=== PATIENT | female | born 1945 | race Caucasian/White ===

== ENCOUNTER → 2016-05-28 | Outpatient (CLI) | payer BC ==
[~2016-05-28] MED LIST: ATOR10TA88 PO; CALC500C70 PO; CHOL100010; CYCL0.05 OP; LEVO1TAB PO; METO50TA16 PO; NXM/40 PO; TELM80TA PO
--- NOTE | 2016-05-28 14:17 | MAMMOGRAPHY REPORT ---
BILATERAL DIGITAL SCREENING MAMMOGRAM WITH CAD: 05/28/2016 CLINICAL HISTORY: Routine screening. Patient has no complaints. TECHNIQUE: Current study was also evaluated with a Computer Aided Detection (CAD) system. Bilatera l CC and MLO views were obtained. COMPARISON: Comparison is made to exams dated: 04/17/2015 mammogram, 04/14/2013 mammogram, 04/16/2014 mammogram, 04/13/2012 mammogram, 04/10/2011 mammogram, and 04/09/2010 mammogram - [facility]. BREAST COMPOSITION: The tissue of both breasts is almost entirely fatty. FINDINGS: No suspicious masses, calcifications, or areas of architectural distortion are noted in e ither breast. There has been no significant interval change compared to prior exams. Scattered bila teral benign-appearing rodlike calcifications are again noted. IMPRESSION: ACR BI-RADS CATEGORY 2: BENIGN There is no mammographic evidence of malignancy. A 1 year screening mammogram is recommended. The p atient will receive written notification of the results. Approximately 10% of breast cancers are not detected with mammography. A negative mammographic repor t should not delay biopsy if a clinically suggestive mass is present. Elise Tolliver M.D. ah/:05/28/2016 10:40:33 Broadband Technician: Mary CHOWDARY(R)(M), [facility] letter sent: Normal 1/2 BI-RADS Code: ACR BI-RADS Category 2: Benign
== END | disposition home or self-care (01) ==
LOC: C.MAMM 09:21
PROVIDERS: ATTEND Obstetrics & Gynecology
DX: Z12.31 Encounter for screening mammogram for malignant neoplasm of breast (principal)

== ENCOUNTER → 2016-10-08 | Outpatient (CLI) | payer BC ==
[~2016-10-08] MED LIST changes: +ATOR10TA82 PO; -ATOR10TA88 PO
[2016-10-08 17:11] LABS: BLOOD UREA NITROGEN 14 mg/dl (7-18); CREATININE 0.78 mg/dl (0.60-1.20)
== END | disposition home or self-care (01) ==
LOC: C.LABBC 13:00
PROVIDERS: ATTEND Physician Assistant
DX: Z00.00 Encounter for general adult medical examination without abnormal findings (principal); H90.8 Mixed conductive and sensorineural hearing loss, unspecified

== ENCOUNTER → 2016-10-13 | Outpatient (CLI) | payer BC ==
[~2016-10-13] MED LIST changes: +GADAVIST IV PRN
--- NOTE | 2016-10-13 10:50 | DIAGNOSTIC IMAGING REPORT ---
MRA OF THE INTRACRANIAL CIRCULATION WITHOUT CONTRAST CLINICAL HISTORY: Pulsatile tinnitus of left ear. COMPARISON STUDY: MRI of the brain March 07, 2008. TECHNIQUE: Utilizing a 1.5 Idalia magnet and 3-D temx-um-iowcji technique, unenhanced MRA of the intracranial circulation was obtained. FINDINGS: The bilateral M1, M2, A1 and A2 segments are patent. There is an anterior communicating artery and bilateral posterior communicating arteries. No intracranial aneurysm or abrupt vessel cut off is identified. There is mild narrowing of the bilateral cavernous carotids which is difficult to assess due to mild motion artifact at this level. Posterior circulation is also intact. IMPRESSION: 1. No intracranial aneurysm or abrupt vessel cut off. 2. Unremarkable MRA of the intracranial circulation for age. Electronically signed by: Marlon Bean M.D. 10/13/2016 10:49 AM Dictated Date/Time: 10/13/2016 10:45 AM
--- NOTE | 2016-10-13 11:24 | DIAGNOSTIC IMAGING REPORT ---
MRI OF THE BRAIN AND IACS WITHOUT AND WITH IV CONTRAST CLINICAL HISTORY: H90.8 Mixed conductive and sensorineural hearing lossR53.83 fatigue left-sided tinnitus COMPARISON STUDY: 03/07/2008 TECHNIQUE: MRI of the brain was performed from the vertex to the skull base utilizing various T1 and T2 weighted sequences. Following the IV administration of 10 mL of Gadavist contrast, additional enhanced images were obtained. FINDINGS: Sagittal T1, axial diffusion, proton density and T2 weighted axial, coronal FLAIR, and pre and post axial T1-weighted images were acquired. These were supplemented with post gadolinium coronal T1 weighted images. No intra or extra-axial mass lesions are visualized. Axial diffusion-weighted images reveal no evidence of acute or subacute infarction. There is no evidence of ventricular dilatation. Proton density T2-weighted and FLAIR images reveal scattered foci of increased T2 signal within the white matter, likely on a small vessel basis. The findings remain stable. There are no abnormal flow voids. There is no evidence of pathologic enhancement. No cerebellopontine angle masses are visualized. There is no evidence of pathologic intracanalicular enhancement. There are foci of increased T2 signal within the right mastoid, likely inflammatory. IMPRESSION: 1. No significant change from the prior February 2008 study (other than progressive inflammatory changes within the right mastoid) 2. No evidence of intracranial mass. No CP angle abnormalities identified 3. Foci of increased T2 signal within the right mastoid likely inflammatory Electronically signed by: Darrius Austin M.D. 10/13/2016 11:23 AM Dictated Date/Time: 10/13/2016 11:17 AM
== END | disposition home or self-care (01) ==
LOC: C.MRI 09:58
PROVIDERS: ATTEND Physician Assistant
DX: H93.A2 Pulsatile tinnitus, left ear (principal); H90.8 Mixed conductive and sensorineural hearing loss, unspecified; R53.83 Other fatigue

== ENCOUNTER → 2016-12-22 | Outpatient (CLI) | payer BC ==
[~2016-12-22] MED LIST changes: -ATOR10TA82 PO; +ATOR10TA88 PO; -GADAVIST IV PRN
[2016-12-22 13:47] LABS: BLOOD UREA NITROGEN 10 mg/dl (7-18); BUN/CREATININE RATIO 13.6 (10-20); CREATININE 0.76 mg/dl (0.60-1.20); GLUCOSE 123 mg/dl (70-99); SODIUM 138 mmol/L (136-145)
[2016-12-22 13:48] LABS: CALCIUM 8.9 mg/dl (8.5-10.1); CARBON DIOXIDE 26 mmol/L (21-32); CHLORIDE 104 mmol/L (98-107); POTASSIUM 3.6 mmol/L (3.5-5.1)
== END | disposition home or self-care (01) ==
LOC: C.LABBC 10:54
PROVIDERS: ATTEND Internal Medicine Geriatric Medicine
DX: E03.9 Hypothyroidism, unspecified (principal); I10 Essential (primary) hypertension

== ENCOUNTER → 2017-05-31 | Outpatient (CLI) | payer BC ==
[~2017-05-31] MED LIST changes: +ATOR10TA82 PO; -ATOR10TA88 PO
--- NOTE | 2017-06-01 14:39 | MAMMOGRAPHY REPORT ---
BILATERAL DIGITAL SCREENING MAMMOGRAM TOMOSYNTHESIS WITH CAD: 05/31/2017 CLINICAL HISTORY: Routine screening. Patient has no complaints. TECHNIQUE: Breast tomosynthesis in addition to standard 2D mammography was performed. Current study was also evaluated with a Computer Aided Detection (CAD) system. COMPARISON: Comparison is made to exams dated: 05/28/2016 mammogram, 04/17/2015 mammogram, 04/16/2014 m ammogram, 04/14/2013 mammogram, 04/13/2012 mammogram, and 04/10/2011 mammogram - [facility] enter. BREAST COMPOSITION: The tissue of both breasts is almost entirely fatty. FINDINGS: There are diffuse bilateral benign rodlike calcifications in the breasts. No suspicious ma ss, architectural distortion or cluster of suspicious microcalcifications is seen. IMPRESSION: ACR BI-RADS CATEGORY 1: NEGATIVE There is no mammographic evidence of malignancy. A 1 year screening mammogram is recommended. The pa tient will receive written notification of the results. Approximately 10% of breast cancers are not detected with mammography. A negative mammographic report should not delay biopsy if a clinically suggestive mass is present. Eloina Galvan M.D. ay/:05/31/2017 17:13:19 Lawn Mower Sharpener: Elsa CHOWDARY(Jaron)(Roderick), [facility] letter sent: Normal 1/2 BI-RADS Code: ACR BI-RADS Category 1: Negative
== END | disposition home or self-care (01) ==
LOC: C.MAMM 10:02
PROVIDERS: ATTEND Internal Medicine Geriatric Medicine
DX: Z12.31 Encounter for screening mammogram for malignant neoplasm of breast (principal)

== ENCOUNTER → 2017-07-01 | Outpatient (CLI) | payer BC ==
--- NOTE | 2017-07-01 12:16 | DIAGNOSTIC IMAGING REPORT ---
CERVICAL SPINE 2 OR 3 VIEWS HISTORY: Pain. Arthritis. M19.90 Osteoarthritis COMPARISON: None. FINDINGS: The cervical spine is visualized from C1 through the superior endplate of T1. There is no fracture. No subluxation. Moderate degenerative disc change C5-C6. All remaining disc spaces are unremarkable. Prevertebral soft tissues and the atlantodens interval are intact. Osteopenia. IMPRESSION: Moderate degenerative disc change C5-C6. Mild osteopenia. No acute process. The above report was generated using voice recognition software. It may contain grammatical, syntax or spelling errors. Electronically signed by: Ez Lopez M.D. 07/01/2017 12:14 PM Dictated Date/Time: 07/01/2017 12:14 PM
== END | disposition home or self-care (01) ==
LOC: C.RADBC 11:49
PROVIDERS: ATTEND Internal Medicine Geriatric Medicine
DX: M19.90 Unspecified osteoarthritis, unspecified site (principal); M50.322 Other cervical disc degeneration at C5-C6 level

== ENCOUNTER 2017-07-09 23:05 | Emergency (ER) | payer BC ==
[~2017-07-09] VITALS: Ht 154.9 cm; Wt 101.9 kg
[2017-07-09 23:31] VITALS: BP 150/82; PULSE 64; TEMP 36.8; O2SAT 96; Ht 154.9 cm; Wt 101.9 kg
[2017-07-09] MEDS ORDERED: OXYCODONE HCL IR 5 MG TAB (IMMEDIATE RELEASE) PO STA (23:40)
--- NOTE | 2017-07-09 23:56 | EMERGENCY ROOM VISIT NOTE ---
History Report prepared by [place]: David Johansen Under the Supervision of: Dr. Genaro Travis M.D. First contact with patient: 23:33 Chief Complaint: HAND PAIN/INJURY Stated Complaint: HURT HAND History of Present Illness The patient is a 71 year old female who presents to the Emergency Room with complaints of constant left hand pain that began a couple of hours ago. She rates her discomfort as a 10/10 in severity. The patient states that she was sitting when her cat sneezed in her face. She reports she was startled by the sneeze, which caused her to hit her hand off of something. The patient states that she became nauseous when she hit her hand. She reports her nausea resolved , but states she has been experiencing constant left hand pain. She states the pain is located primarily in her left thumb into her wrist. The patient states that she took Tylenol for her symptoms an hour ago without any relief. She reports a history of a bone spurt in her left hand, arthritis, and tendonitis, which she does physical therapy for. The patient states that she has a tremor at baseline, which she takes Primidone for. Source of History: patient Onset: a couple of hours ago Position: hand (left) Symptom Intensity: 10/10 Timing: constant Modifying Factors (Relieving): tylenol Associated Symptoms: + nausea (resolved) Review of Systems See HPI for pertinent positives & negatives. A total of 6 systems reviewed and were otherwise negative. Past Medical & Surgical Medical Problems: (1) Carotid artery occlusion (2) Gastric ulcer (3) HTN (hypertension) (4) Hyperlipemia Family History FH: heart disease Social History Smoking Status: Never Smoker Alcohol Use: occasionally Marital Status: Housing Status: lives with significant other Occupation Status: retired Current/Historical Medications Scheduled Atorvastatin (Lipitor), 10 MG PO QPM Calcium/Vitamin D (Os-Jayy 500 Plus D), 1 TAB PO DAILY Cholecalciferol (Vitamin D), 2,000 INTER.UNIT .ROUTE DAILY Cyclosporine Oph 0.05% (Restasis Oph 0.05%), 1 DROP OP BID Esomeprazole Magnesium (Nexium), 40 MG PO DAILY Levothyroxine Sodium (Synthroid), 0.137 MG PO DAILY Metoprolol Tartrate (Lopressor) (Lopressor), 50 MG PO BID Telmisartan (Micardis), 80 MG PO QPM Allergies Coded Allergies: Alendronate (Verified Allergy, Unknown, HIVES, 07/14/13) Aspirin (Verified Allergy, Unknown, STOMACH ULCER, 07/14/13) Lisinopril (Verified Allergy, Unknown, HIVES, 07/14/13) Olmesartan (Verified Allergy, Unknown, HIVES, 07/14/13) Physical Exam Vital Signs Date Time Temp Pulse Resp B/P (MAP) Pulse Ox O2 Delivery O2 Flow Rate FiO2 07/09/17 23:31 36.8 64 16 150/82 96 Room Air Physical Exam GENERAL: Patient is uncomfortable appearing and in mild distress. EXTREMITIES: Normal motion all extremities, no cyanosis, no edema. Bruising of nail bed of left thumb. Tenderness to palpation of the medial aspect of the entire thumb. Pain with range of motion of all joints and thumb. NEUROLOGIC: Alert and oriented, no acute motor or sensory deficits, no focal weakness, cranial nerves grossly intact. Medical Decision & Procedures ER Provider Diagnostic Interpretation: X ray results are stated below per my interpretation. 3 VIEW LEFT THUMB: Moderate degenerative changes. No fracture. No dislocation. Medications Administered Medications (Trade) Dose Ordered Sig/Fransisca Route Start Time Stop Time Status Last Admin Dose Admin Oxycodone HCl (Roxicodone Immediate Rel Tab) 5 mg NOW STAT PO 07/09/17 23:40 07/09/17 23:41 DC 07/09/17 23:40 5 MG Oxycodone HCl (Roxicodone Immediate Rel 5MG Home Pack) 1 homepack UD ONCE PO 07/10/17 00:45 07/10/17 00:46 DC 07/10/17 00:45 1 HOMEPACK ED Course 2337: The patient was evaluated in room B07. A complete history and physical exam was performed. 0021: I reevaluated the patient and she is feeling better and would like to go home. I discussed a finger split and going home with Oxy IR and the restrictions there of. Medical Decision The differential diagnosis includes: fracture, dislocation, and contusion. 71 yr old female with contusion to left thumb. No obvious fracture on imaging but with swelling pain will place in splint for primarily at nights and stressed trying to keep it mobile so that it doesn't stiffen further beyond already basely issues. Medication Reconcilliation Current Medication List: was personally reviewed by me Blood Pressure Screening Patient's blood pressure: Elevated blood pressure Blood pressure disposition: Elevated BP felt to be situational Impression Primary Impression: Contusion of left thumb Scribe Attestation The scribe's documentation has been prepared under my direction and personally reviewed by me in its entirety. I confirm that the note above accurately reflects all work, treatment, procedures, and medical decision making performed by me. Departure Information Dispostion Home / Self-Care Referrals Son Umanzor M.D. (PCP) Patient Instructions ED Contusion Finger, My [facility] Additional Instructions You have received a narcotic pain medication. These medications may cause drowsiness and should not be used with other sedative medications. Do not drive , drink alcohol, perform dangerous activities, nor make important decisions after taking these medications. penitentiary use or inappropriate use may lead to addiction.
[2017-07-10] MEDS ORDERED: OXYCODONE IR HOME PACK PO ONE (00:45)
--- NOTE | 2017-07-10 05:42 | DIAGNOSTIC IMAGING REPORT ---
L FINGER(S) MIN 2 VIEWS ROUTINE CLINICAL HISTORY: 71 years-old Female presenting with left thumb contusion. TECHNIQUE: Frontal, oblique, and lateral views of the left first finger were obtained. COMPARISON: Correlation made to plain radiographs of the left wrist from 2011. FINDINGS: Mild degenerative changes suggested at the trapezium-first metacarpal articulation as well as the interphalangeal joint of the first finger. No acute fracture or malalignment. No focal radiographic soft tissue abnormality. Osteopenia may be present. IMPRESSION: No acute osseous injury. Electronically signed by: Bradley Cerna M.D. 07/10/2017 5:40 AM Dictated Date/Time: 07/10/2017 5:39 AM
== END 2017-07-10 01:05 | disposition home or self-care (01) ==
LOC: C.EDB 23:06
DX: S60.012A Contusion of left thumb without damage to nail, initial encounter (principal); W22.8XXA Striking against or struck by other objects, initial encounter; I10 Essential (primary) hypertension; E78.5 Hyperlipidemia, unspecified; Z88.6 Allergy status to analgesic agent; Z88.8 Allergy status to other drugs, medicaments and biological substances; Z82.49 Family history of ischemic heart disease and other diseases of the circulatory system

== ENCOUNTER 2020-01-05 10:15 | Observation (INO) ==
--- NOTE | 2019-12-11 15:13 | PAT Medication Instructions ---
Medication Instructions Date of Service December 11, 2019 Home Medications Medication Instructions Recorded fesoterodine 4 mg tablet,extended 4 mg PO QAM #90 tab 03/15/19 release 24 hr CPAP Machine #1 ea 04/26/19 primidone 50 mg tablet 100 mg PO TID 30 Days #180 tab 07/20/19 levothyroxine 150 mcg tablet 150 mcg PO QAM #90 tab 08/21/19 celecoxib 100 mg capsule 100 mg PO BID #180 cap 09/18/19 metoprolol tartrate 50 mg tablet 50 mg PO BIDM #180 tab 10/12/19 cholecalciferol (vitamin D3) 50 mcg (2,000 unit) capsule 2,000 units PO QPM cyclosporine 0.05 % eye drops in a dropperette 1 drops OPB Q12H omega-3 fatty acids 1,000 mg capsule 3,000 mg PO QAM atorvastatin 10 mg PO QAM fesoterodine 4 mg tablet,extended release 24 hr 4 mg PO QAM Calcium 600 + D(3) 1 cap PO QPM primidone 50 mg tablet 100 mg PO TID levothyroxine 150 mcg tablet 150 mcg PO QAM # celecoxib 100 mg capsule 100 mg PO BID metoprolol tartrate 50 mg tablet 50 mg PO BIDM acetaminophen [Tylenol Extra Strength] 1,000 mg PO DAILY PRN duloxetine 30 mg PO HS telmisartan 80 mg PO HS ASK your surgeon for instructions celecoxib 100 mg capsule 100 mg PO BID STOP taking 2 weeks before surgery omega-3 fatty acids 1,000 mg capsule 3,000 mg PO QAM DO NOT take the morning of surgery fesoterodine 4 mg tablet,extended release 24 hr 4 mg PO QAM Take morning of surgery With a small sip of water, OTHERWISE NOTHING TO EAT OR DRINK AFTER MIDNIGHT: acetaminophen [Tylenol Extra Strength] 1,000 mg PO DAILY PRN (okay to take up to 4 hours prior to surgery if needed) metoprolol tartrate 50 mg tablet 50 mg PO BIDM levothyroxine 150 mcg tablet 150 mcg PO QAM primidone 50 mg tablet 100 mg PO TID atorvastatin 10 mg PO QAM cyclosporine 0.05 % eye drops in a dropperette 1 drops OPB Q12H Take evening before surgery cholecalciferol (vitamin D3) 50 mcg (2,000 unit) capsule 2,000 units PO QPM cyclosporine 0.05 % eye drops in a dropperette 1 drops OPB Q12H Calcium 600 + D(3) 1 cap PO QPM primidone 50 mg tablet 100 mg PO TID metoprolol tartrate 50 mg tablet 50 mg PO BIDM acetaminophen [Tylenol Extra Strength] 1,000 mg PO DAILY PRN (if needed) duloxetine 30 mg PO HS telmisartan 80 mg PO HS Other Notes If you have any questions please call us at [phone] or [phone] or [phone] or [phone]
--- NOTE | 2019-12-13 11:49 | Anesthesiology Consultation ---
Date of Service December 13, 2019 Assessment & Plan (1) Encounter for pre-operative examination: Chart Review Chart Review: Pending: Refer to Additional Notes / Consult section (carotid studies/vascular note ([place]) and preop Covid testing) and Patient seen in Pre Admission Testing Will attempt to get most recent carotid studies and vascular note from [place] Per PAT appt 12/13/19, patient denies any recent travel. Educated patient to follow up with surgeon's office regarding Covid testing. Educated on importance of self quarantining, social distancing and wearing mask in public both for the patient and household contacts. Teaching & Discussion Pre-Anesthesia Teaching/Discussion Notes: Instructed NPO after midnight before surgery,except medications with 15 cc of water. Medication instructions provided according to the PAT guidelines. History Surgery Operation Date: 01/05/20 07:00 Proposed Procedures p Left Anterior Total Hip Arthroplasty - Mar[facility] De Souza, Height/Weight Height: 5 ft 1.5 in Weight: 100.1 kg Allergies Allergy/AdvReac Type Severity Reaction Status Date / Time alendronate sodium Allergy Unknown HIVES Verified 12/07/19 08:42 lisinopril Allergy Unknown HIVES Verified 12/07/19 08:42 olmesartan Allergy Unknown HIVES Verified 12/07/19 08:42 aspirin AdvReac Unknown HX STOMACH Verified 12/07/19 08:42 ULCER-TO AVOID Medications Home Medications Medication Instructions Recorded Confirmed Last Taken cholecalciferol (vitamin D3) 50 2,000 units PO QPM 11/22/18 12/07/19 04/10/19 20:00 mcg (2,000 unit) capsule cyclosporine 0.05 % eye drops in a 1 drops OPB Q12H 11/22/18 12/07/19 04/10/19 20:00 dropperette omega-3 fatty acids 1,000 mg 3,000 mg PO QAM cap 11/22/18 12/07/19 04/10/19 20:00 capsule atorvastatin 10 mg PO QAM 03/14/19 12/07/19 04/11/19 05:00 fesoterodine 4 mg tablet,extended 4 mg PO QAM #90 tab 03/15/19 12/07/19 04/11/19 05:00 release 24 hr Calcium 600 + D(3) 1 cap PO QPM 03/29/19 12/07/1919 20:00 CPAP Machine #1 ea 04/26/19 11/02/19 Unknown primidone 50 mg tablet 100 mg PO TID 30 Days #180 tab 07/20/19 12/07/19 Unknown levothyroxine 150 mcg tablet 150 mcg PO QAM #90 tab 08/21/19 12/07/19 Unknown celecoxib 100 mg capsule 100 mg PO BID #180 cap 09/18/19 12/07/19 Unknown metoprolol tartrate 50 mg tablet 50 mg PO BIDM #180 tab 10/12/19 12/07/19 Unknown acetaminophen [Tylenol Extra 1,000 mg PO DAILY PRN 12/07/19 12/07/19 Unknown Strength] duloxetine 30 mg PO HS 12/07/19 12/07/19 Unknown telmisartan 80 mg PO HS 12/07/19 12/07/19 Unknown Past Medical History Medical History (Updated 12/13/19 @ 13:16 by Emma Fish PA-C) Carotid artery disease Follows with Dr. Montoya - carotid disease bilaterally- stable per patient Chronic pain Chronic joint pain Degenerative disc disease Essential tremor Followed by Dr. Fuentes- both hands HTN (hypertension) Hyperglycemia Hyperlipemia Hypothyroidism Mixed conductive and sensorineural hearing loss of left ear with restricted hearing of right ear Wears bilateral hearing aids Peptic ulcer disease hx Sleep apnea cpap nightly Solitary thyroid nodule (~2012) Stress incontinence Exercise / Class Metabolic Activity II 4-5 Yardwork/Stairs/Walk up hill (one flight of stairs- no chest pain or SOB) Past Family History Family History Unknown Cardiovascular disease Brother Acute myocardial infarction Father Coronary heart disease Sister Family history of diabetes mellitus Past Surgical History Surgical History H/O arthroscopy of right knee History of adenoidectomy History of cataract surgery bilateral History of esophagogastroduodenoscopy (EGD) History of tonsillectomy History of tympanoplasty of right ear History of vitrectomy left S/P arthroscopy of left shoulder S/P colonoscopy Status post mastoidectomy left Past Anesthesia History No Hx of Anesthesia Complications and No Family Hx of Anesthesia Complications History of PONV No Hx of PONV and No Hx of Motion Sickness Social History Smoking Status: Never smoker Do You Dip or Chew Tobacco: No Hx Alcohol Use: Yes Alcohol type: wine alcohol intake frequency: a few times a month Hx Substance Use: No substance use type: does not use Review of Systems Patient denies chest pain, shortness of breath, dyspnea on exertion, reflux, cough, wheezing, palpitations. No hx of seizures, stroke, [place]. No hx of blood clots or blood transfusions Physical Exam Vital Signs VITALS BP 113/61 P 57 TEMP 97.7 SP02 97% RESP 16 Constitutional + obese; no acute distress ENMT Mouth: no TMJ clicking Thyromental Distance: > or= 3.5 Finger Breadths (3.5) Mallampati Class: III Missing molars Low right permanent bridge Neck + short neck, + thick neck and + limited neck extension (significant ) Respiratory normal respiratory effort; no respiratory distress Auscultation: lungs clear to auscultation bilaterally; no wheezes Cardiovascular Rate/Rhythm: regular rate and regular rhythm Heart Sounds: no murmur Vessels: no carotid bruit Musculoskeletal Spine: no pain with cervical ROM Neurologic moves all extremities Psychiatric Orientation: alert Testing Laboratory Results 12/13/19 12:10 12/13/19 12:10 PT 10.3 Seconds (9.0-12.0) 12/13/19 12:10 INR 1.0 (0.9-1.1) 12/13/19 12:10 APTT 24.5 Seconds (21.0-31.0) 12/13/19 12:10 Blood Type A Negative 12/13/19 12:10 Antibody Screen NEGATIVE 12/13/19 12:10 Electrocardiogram Date: 12/13/19 Findings: + NSR @ (61) Low voltage QRS. Chest X-Ray Date: 12/13/19 Findings: + NAD Mild right hemidiaphragmatic elevation. Echocardiogram Date: 02/02/18 EF: 55-60% LV Function: normal RWMA: + none Other Findings: + LVH (mild/concentric) Grade I diastolic dysfunction. RV is mildly to moderately dilated. RA mildly dilated. Trace to mild MR/TR. Stress Test Date: 05/14/14 Type: exercise (Stress ECHO ) Resting EF: 60% Resting LV Function: normal Resting RWMA: + none Valvular Disease: no significant valvular disease Negative exercise stress ECHO and EKG with MPHR at 86%.
--- NOTE | 2019-12-13 12:32 | XRay Report ---
XR chest Pre-admission PA/Lat HISTORY: 74 years-old Female PAT preoperative exam. No acute chest complaints COMPARISON: None TECHNIQUE: PA and lateral views of the chest FINDINGS: Cardiomediastinal and hilar silhouettes are within normal limits. Mild right hemidiaphragmatic elevat ion. No pneumothorax, pleural effusion, airspace consolidation or overt pulmonary edema. Degenerative changes of the shoulders and spine. IMPRESSION: No acute process. ACT 112: Negative or not required by law. The above report was generated using voice recognition software. It may contain grammatical, syntax o r spelling errors. Electronically signed by: Lizandro Armstrong M.D. 12/13/2019 12:31 PM
[2019-12-13 13:16] LABS: Basophils # (auto) 0.04 K/uL (0-0.2); Basophils % (auto) 0.8 %; Eosinophils # (auto) 0.19 K/uL (0-0.5); Eosinophils % (auto) 3.9 %; Hematocrit (blood only) 37.4 % (37-47); Hemoglobin 12.3 g/dL (12.0-16.0); Immature Granulocytes # (auto) 0.01 K/uL (0.00-0.02); Immature Granulocytes % (auto) 0.2 %; Lymphocytes # (auto) 1.95 K/uL (1.2-3.4); Lymphocytes % (auto) 40.4 %; Mean Corpuscular Hemoglobin 30.5 pg (25-34); Mean Corpuscular Hgb Conc 32.9 g/dL (32-36); Mean Corpuscular Volume 92.8 fL (80-100); Mean Platelet Volume 11.1 fL (7.4-10.4); Monocytes # (auto) 0.55 K/uL (0.11-0.59); Monocytes % (auto) 11.4 %; Neutrophils # (auto) 2.09 K/uL (1.4-6.5); Neutrophils % (auto) 43.3 %; Platelet Count 208 K/uL (130-400); RDW Coefficient of Variation 13.1 % (11.5-14.5); RDW Standard Deviation 44.5 fL (36.4-46.3); Red Blood Count 4.03 M/uL (4.2-5.4); White Blood Count 4.83 K/uL (4.8-10.8)
[2019-12-13 13:29] LABS: Partial Thromboplastin Ratio 0.9; Partial Thromboplastin Time 24.5 Seconds (21.0-31.0); Prothrombin Time 10.3 Seconds (9.0-12.0)
[2019-12-13 13:31] LABS: BUN Creatinine Ratio 22.8 (10-20); Calcium 8.8 mg/dl (8.5-10.1); Creatinine Clr Calc Pharmacy 70.2 ml/min; Est GFR (African American) 88.2; Est GFR (Non-African American) 76.1; Potassium 4.7 mmol/L (3.5-5.1)
--- NOTE | 2019-12-13 17:15 | Electrocardiogram Report ---
Test Reason : Blood Pressure : / mmHG Vent. Rate : 061 BPM Atrial Rate : 061 BPM P-R Int : 168 ms QRS Dur : 080 ms QT Int : 432 ms P-R-T Axes : -20 041 056 degrees QTc Int : 434 ms Normal sinus rhythm Low voltage QRS Borderline ECG When compared with ECG of 08-OCT-2017 11:57, No significant change was found Confirmed by Cordell Amin ([id number]) on 12/13/2019 5:15:22 PM Referred By: Marv De Souza Confirmed By:Tyree Amin
--- NOTE | 2020-01-04 06:58 | History & Physical Report ---
Date of Service January 04, 2020 Assessment & Plan (1) Osteoarthritis: We will proceed with a left total hip arthroplasty. Postoperatively she will be started on aspirin and Protonix for DVT prophylaxis. She will be kept overnight in the hospital for postoperative medical management. She plans to use [facility] upon discharge. Present on Admission?: Yes History of Present Illness Chief Complaint: Primary osteoarthritis of the left hip Primary Care Provider: Marv Herrera DO Chairez is a pleasant 74-year-old female who is been dealing with chronic increasing left hip and groin pain. X-rays and clinical examination agent have been diagnostic for advanced osteoarthritis of the left hip. After failing conservative treatment, she has elected to proceed with a left total hip arthroplasty. Allergies Allergy/AdvReac Type Severity Reaction Status Date / Time alendronate sodium Allergy Unknown HIVES Verified 01/03/20 09:28 lisinopril Allergy Unknown HIVES Verified 01/03/20 09:28 olmesartan Allergy Unknown HIVES Verified 01/03/20 09:28 aspirin AdvReac Unknown HX STOMACH Verified 01/03/20 09:28 ULCER-TO AVOID Home Medications Home Medications Medication Instructions Recorded Confirmed Type cholecalciferol (vitamin D3) 50 2,000 units PO QPM 11/22/18 01/03/20 History mcg (2,000 unit) capsule cyclosporine 0.05 % eye drops in a 1 drops OPB Q12H 11/22/18 01/03/20 History dropperette omega-3 fatty acids 1,000 mg 3,000 mg PO QAM cap 11/22/18 01/03/20 History capsule atorvastatin 10 mg PO QAM 03/14/19 01/03/20 History fesoterodine 4 mg tablet,extended 4 mg PO QAM #90 tab 03/15/19 01/03/20 Rx release 24 hr Calcium 600 + D(3) 1 cap PO QPM 03/29/19 01/03/20 History CPAP Machine #1 ea 04/26/19 01/03/20 Rx levothyroxine 150 mcg tablet 150 mcg PO QAM #90 tab 08/21/19 01/03/20 Rx celecoxib 100 mg capsule 100 mg PO BID #180 cap 09/18/19 01/03/20 Rx metoprolol tartrate 50 mg tablet 50 mg PO BIDM #180 tab 06/04/20 08/26/20 Rx acetaminophen [Tylenol Extra 1,000 mg PO DAILY PRN 12/07/19 01/03/20 History Strength] duloxetine 30 mg PO HS 12/07/19 01/03/20 History telmisartan 80 mg PO HS 12/07/19 01/03/20 History primidone 50 mg tablet 100 mg PO TID 30 Days #180 tab 01/03/20 01/03/20 Rx Past Med/Surg History Medical History Carotid artery disease Follows with Dr. Montoya - carotid disease bilaterally- stable per patient Chronic pain Chronic joint pain Degenerative disc disease Essential tremor Followed by Dr. Fuentes- both hands HTN (hypertension) Hyperglycemia Hyperlipemia Hypothyroidism Mixed conductive and sensorineural hearing loss of left ear with restricted hearing of right ear Wears bilateral hearing aids Peptic ulcer disease hx Sleep apnea cpap nightly Solitary thyroid nodule (~2012) Stress incontinence Surgical History H/O arthroscopy of right knee History of adenoidectomy History of cataract surgery bilateral History of esophagogastroduodenoscopy (EGD) History of tonsillectomy History of tympanoplasty of right ear History of vitrectomy left S/P arthroscopy of left shoulder S/P colonoscopy Status post mastoidectomy left Family History Unknown Cardiovascular disease Brother Acute myocardial infarction Father Coronary heart disease Sister Family history of diabetes mellitus Social History Smoking Status: Never smoker Second Hand Exposure: Yes ( A CHILD); Hx Alcohol Use: Yes Alcohol type: wine Hx Substance Use: No Preferred Language: Micronesian Communication Ability: Effective Drug Enforcement Administration Agent Required: No Beliefs That Will Affect Care: None marital status: Current Living Situation: Spouse current occupational status: retired Feels Safe at Home: Yes Childhood Exposure to Second-Hand Smoke: Yes caffeine: Yes Dental Care, Regularly: Yes Physical Activity Frequency: Does not Exercise Seatbelt Use: always Sunscreen Use: Yes Review of Systems Review of Systems: All systems reviewed & are unremarkable except as noted in HPI & below Physical Exam Constitutional: WD/WN, vitals as above Eyes: PERRL, conjunctivae normal, anicteric sclerae ENMT: external ear and nose normal, oropharynx normal Neck: trachea midline, no thyromegaly Respiratory: normal respiratory effort Cardiovascular: RRR, no murmur, no edema Gastrointestinal (Abdomen): normal bowel sounds, soft, nontender, no hepatosplenomegaly Musculoskeletal: Physical examination of the left hip reveals decreased range of motion with flexion, internal and external rotation. There is significant groin pain with forced internal rotation of the hip his leg lengths are essentially equal. Psychiatric: A+Ox3, euthymic affect Results & Data Results & Data ([facility]) Diagnostic Findings Radiographs of the left hip and pelvis demonstrate advanced osteoarthritis with joint space narrowing osteophyte formation and [id number] articulation. PG Care Time/CCT Total # of Minutes Spent Total Time Spent with Patient: Total time spent is greater than 50% in coordination of care (as documented) at patient's floor/unit and/or counseling patient: Coding Level of Care Code 15345 Initial Inpt Care Lvl 2 Diagnoses Osteoarthritis M19.90
--- NOTE | 2020-01-05 09:40 | History & Physical Bridge Note ---
Date of Service January 05, 2020 History & Physical Bridge Note I have examined the patient, reviewed the History & Physical and in the interval since the performance of the History & Physical I have noted the following changes of clinical significance: no changes noted
[~2020-01-05 10:15] MED LIST changes: +ACETAMINOPHEN 500 MG TAB PO SCH; -ATOR10TA82 PO; +BUPIVACAINE 0.5 % 5 MG/1 ML PF 10ML VIAL ONE; -CALC500C70 PO; +CEFAZOLIN 2000MG 2,000 MG/15 ML SYR IV SCH; -CHOL100010; -CYCL0.05 OP; +FAMOTIDINE 20 MG TAB PO SCH; +GABAPENTIN 300 MG CAP PO SCH; -LEVO1TAB PO; +LIDOCAINE HCL 2% 2 ML VIAL/AMP(20MG/ML) INFIL ONE; +LR 500ML BOLUS, THEN 15ML/HR IV SCH; +LR 60ML/HR IV SCH; -METO50TA16 PO; +MIDAZOLAM HCL 1 MG/ML 2ML VIAL ONE; -NXM/40 PO; +PROPOFOL IV EMULSION 10 MG/ML 20 ML VIAL IV ONE; +ROPIVACAINE 0.5% HCL/PF 150 MG, BUPIVACAINE 0.5% MPF 30 ML, EPINEPHrine 30MG/30ML (OR U... INSTIL SCH; -TELM80TA PO; +TRANEXAMIC ACID 1,000 MG **IV Intra-op IV SCH; +TRANEXAMIC ACID 1,000 MG **IV Pre-op IV SCH; +dexAMETHasone 4 MG TAB PO SCH; +fentaNYL citrate 100 MCG/2 ML VIAL ONE
[2020-01-05] MEDS ORDERED: ORTHO JOINT ANESTHETIC ONE (11:03)
[2020-01-05] MEDS ORDERED: ONDANSETRON INJ 2 MG/ML 2 ML VIAL IV PRN ×2 (11:20→14:18)
[2020-01-05] MEDS ORDERED: ePHEDrine sulfate 50 MG/ML AMP IV PRN (11:20)
[2020-01-05] MEDS ORDERED: fentaNYL citrate 100 MCG/2 ML VIAL IV PRN (11:20)
[2020-01-05] MEDS ORDERED: ATROPINE SULFATE 0.1 MG/ML 10ML SYR IV PRN (11:20)
--- NOTE | 2020-01-05 12:42 | Operative Report ---
PG Post Operative Report Pre & Post Diagnosis Operation Date: 01/05/20 11:50 Pre-Op Diagnosis: Left Hip Degenerative Joint Disease Post-Op Diagnosis: Left Hip Degenerative Joint Disease I identified the patient and participated in the time-out.: Yes Procedure Operation Date: 01/05/20 11:50 Actual Procedures p Left Anterior Total Hip Arthroplasty, Uncemented modifier 22: Morbid obesity with a BMI of 40.4 (Left) - Marv De Souza DO Surgeon Marv De Souza DO Connie Cleaner Marv London PAC Estimated Blood Loss 200 Findings Consistent with Post-Op Diagnosis Specimens Left femoral head Complications none Disposition Disposition: Recovery Room Indications Mihaela is a pleasant 74-year-old female who presented to my office with chronic increasing left hip and groin pain. X-rays and clinical examination are diagnostic for advanced osteoarthritis of the left hip. After failing conservative treatment, she elected proceed with a left total hip arthroplasty. Description of Procedure Modifier 22: This case took about 50% longer than a standard anterior total hip arthroplasty. Mihaela had a BMI of 40.4. This caused a larger incision and increased dissection for exposure. Exposure was much more difficult. Implants used I used a Biomet Taperloc total hip arthroplasty system with a size 9 micro- standard offset Taperloc stem, a 50 mm G7 cup with a 25mm screw, an E1 polyethylene liner, a 36 mm ceramic head with a -3 neck. Mihaela arrived at the hospital for the above procedure. She was seen in the preoperative holding area and the operative extremity was identified and signed. She was given a spinal anesthetic, a preoperative antibiotic, and TXA. She was then taken back to the operating room and laid on the table in the supine position. She was given basic sedation. The operative leg was secured to a Puristst leg positioner. The hip was then prepped and draped in sterile fashion. A timeout was done and the patient and the operative extremity was properly identified. An anterior approach was used. Dissection was taken down through the fascia and the tensor muscle belly was retracted laterally and the rectus was retracted medially. The circumflex vessels were identified and ligated. The capsule was then incised and tagged for later repair. The femoral neck was then cut and the femoral head was removed. The acetabulum was exposed. Time was spent doing a complete circumferential labral release. Sequential reaming of the acetabulum up to a size 49 reamer was done. Final reamings were done under fluoroscopy to ensure appropriate version. A Biomet 50 mm G7 cup was then impacted into place. A single 25 mm screw was placed. The E1 polyethylene liner was then snapped into place. Surrounding soft tissues were then injected with 100 cc of an orthopedic pain control cocktail. The proximal femur was then exposed. Sequential broaching up to a size 9 broach was done. Off that broach a size 36 head with a -3 neck was trialed. The hip was reduced and fluoroscopic images showed anatomic alignment of the implants in acceptable length. The broach was removed. The final size 9 micro-standard offset Taperloc stem was then impacted into place. A ceramic 36 mm head with a -3 neck was then impacted onto the stem and the hip was reduced. Final fluoroscopic images showed anatomic alignment of the hip. The capsule was then closed with #1 Vicryl suture. A dilute betadyne lavage was then done for 3 minutes. The joint was then irrigated with normal saline solution. The fascia was closed with #1 PDS suture. Skin was closed with 2-0 Vicryl, yasmin, and a Silverlon dressing. She was then transferred to a hospital bed and taken to the post anesthesia care unit in stable condition. She tolerated the procedure well. Marv London PA-C, was present for the entire procedure. He was critical for patient positioning, prepping, draping, retraction exposure, wound closure and application of sterile dressing. I attest to the content of the Intraoperative Record and any orders documented therein. Any exceptions are noted below.
--- NOTE | 2020-01-05 12:44 | Fluoroscopy Report ---
FL hip LT 1V CLINICAL HISTORY: Left total hip arthroplasty. COMPARISON STUDY: None. FLUOROSCOPY TIME: 20 seconds. A single fluoroscopic spot image of the left hip.. FINDINGS: There is a left total hip arthroplasty. The hardware appears intact. No fracture or disloca tion. IMPRESSION: Fluoroscopy provided for left total arthroplasty. ACT 112: Negative or not required by law. Electronically signed by: Esdras Tellez M.D. 01/05/2020 12:42 PM
--- NOTE | 2020-01-05 13:42 | Anesthesiology Progress Note ---
Date of Service January 05, 2020 Anesthesia Post Procedure Vital Signs Vital Signs: Temp Pulse Resp BP Pulse Ox 01/05/20 13:37 36.2 C L 60 18 107/91 95 01/05/20 13:35 36.1 C L 63 18 120/40 L 97 01/05/20 13:21 57 L 20 147/59 H 98 01/05/20 13:10 64 18 112/95 100 01/05/20 13:00 36.2 C L 68 20 136/48 L 96 01/05/20 10:53 37.0 C 59 L 18 152/67 H 97 Transfer of Care Handoff Completed per policy Notes Mental Status: alert / awake / arousable Patient Amnestic to Procedure: Yes Nausea / Vomiting: adequately controlled Pain: adequately controlled Airway Patency, RR, SpO2: stable & adequate BP & HR: stable & adequate Hydration State: stable & adequate Neuraxial Anesthesia: was administered and sensory block is resolving Anesthetic Complications: no major complications apparent
--- NOTE | 2020-01-05 13:42 | XRay Report ---
SINGLE VIEW PELVIS; SINGLE VIEW LEFT HIP CLINICAL HISTORY: Postoperative examination. FINDINGS: An AP portable view of the hips and pelvis with a crosstable lateral portable view of the l eft hip are obtained. A bipolar left hip arthroplasty is in near-anatomic alignment. A single cortic al lag screw transfixes the acetabular cup. No acute fracture is identified. There are expected posto perative changes overlying the left hip including skin clips, subcutaneous gas, and soft tissue swell ing. IMPRESSION: Expected postoperative findings status post left hip arthroplasty. No acute fracture is s een. ACT 112: Negative or not required by law. Electronically signed by: Brooks Lara M.D. 01/05/2020 1:41 PM
[2020-01-05] MEDS ORDERED: SODIUM CHLORIDE 0.9% 1000ML 1,000 ML IV SCH (14:18)
[2020-01-05] MEDS ORDERED: MAGNESIUM HYDROXIDE SUSP 30 ML UDC PO PRN (14:18)
[2020-01-05] MEDS ORDERED: NALOXONE HCL 0.4 MG/1 ML VIAL/CARP IV PRN (14:18)
[2020-01-05] MEDS ORDERED: bisacodyL 10 MG SUPP PR PRN (14:18)
[2020-01-05] MEDS ORDERED: METOCLOPRAMIDE HCL INJ 5 MG/ML 2 ML VIAL IV PRN (14:18)
[2020-01-05] MEDS ORDERED: HYDROmorphone INJ 0.5 MG/0.5 ML SYR IV PRN (14:18)
[2020-01-05] MEDS ORDERED: [UNRECOGNIZED DRUG - OTHER] SCH (16:00)
[2020-01-05] MEDS: KETOROLAC TROMETHAMINE 15 MG/ML VIAL IV SCH ×2 (16:13→20:41)
[2020-01-05] MEDS: PRIMIDONE 50 MG TAB PO SCH ×2 (16:57→20:34)
[2020-01-05] MEDS: METOPROLOL TARTRATE 50 MG TAB PO SCH (16:57)
[2020-01-05] MEDS: ACETAMINOPHEN 500 MG TAB PO SCH ×2 (16:58→22:25)
[2020-01-05] MEDS: OXYCODONE HCL IR 5 MG TAB (IMMEDIATE RELEASE) PO PRN ×2 (18:12→23:57)
[2020-01-05] MEDS: DOCUSATE SODIUM 100 MG CAP PO SCH (20:33)
[2020-01-05] MEDS: DULOXETINE HCL 30 MG CAP PO SCH (20:33)
[2020-01-05] MEDS: ASPIRIN 81 MG ECTAB PO SCH (20:33)
[2020-01-05] MEDS: SENNA 8.6 MG TAB PO SCH (20:34)
[2020-01-05] MEDS: PANTOprazole 40 MG TAB PO SCH (20:34)
[2020-01-05] MEDS: TELMISARTAN 40 MG TAB PO SCH (20:34)
[2020-01-05] MEDS: CEFAZOLIN 2000MG 2,000 MG/15 ML SYR IV SCH (20:35)
[2020-01-06] MEDS: KETOROLAC TROMETHAMINE 15 MG/ML VIAL IV SCH ×4 (03:19→20:06)
[2020-01-06] MEDS: CEFAZOLIN 2000MG 2,000 MG/15 ML SYR IV SCH (03:20)
[2020-01-06] MEDS: LEVOTHYROXINE SODIUM 150 MCG TABLET PO SCH (05:42)
[2020-01-06] MEDS: ACETAMINOPHEN 500 MG TAB PO SCH ×3 (05:42→22:18)
[2020-01-06 06:08] LABS: Basophils # (auto) 0.01 K/uL (0-0.2); Basophils % (auto) 0.1 %; Eosinophils # (auto) 0.02 K/uL (0-0.5); Eosinophils % (auto) 0.2 %; Hematocrit (blood only) 31.9 % (37-47); Hemoglobin 10.8 g/dL (12.0-16.0); Immature Granulocytes # (auto) 0.01 K/uL (0.00-0.02); Immature Granulocytes % (auto) 0.1 %; Lymphocytes # (auto) 1.53 K/uL (1.2-3.4); Lymphocytes % (auto) 16.8 %; Mean Corpuscular Hemoglobin 30.9 pg (25-34); Mean Corpuscular Hgb Conc 33.9 g/dL (32-36); Mean Corpuscular Volume 91.4 fL (80-100); Monocytes # (auto) 1.07 K/uL (0.11-0.59); Monocytes % (auto) 11.7 %; Neutrophils # (auto) 6.47 K/uL (1.4-6.5); Neutrophils % (auto) 71.1 %; Platelet Count 165 K/uL (130-400); RDW Coefficient of Variation 13.1 % (11.5-14.5); RDW Standard Deviation 43.4 fL (36.4-46.3); Red Blood Count 3.49 M/uL (4.2-5.4); White Blood Count 9.11 K/uL (4.8-10.8)
[2020-01-06 06:39] LABS: BUN Creatinine Ratio 19.8 (10-20); Calcium 8.3 mg/dl (8.5-10.1); Creatinine Clr Calc Pharmacy 47.5 ml/min; Est GFR (African American) 55.4; Est GFR (Non-African American) 47.8; Potassium 4.4 mmol/L (3.5-5.1)
--- NOTE | 2020-01-06 07:42 | Orthopedic Progress Note ---
Date of Service January 06, 2020 Assessment & Plan (1) Status post left hip replacement: Overall she is doing well. She is not in too much pain in the left hip. She will be seen by physical therapy today for ambulation and range of motion exercises. She is on aspirin for DVT prophylaxis. We will plan for discharge to home tomorrow. Present on Admission?: Yes Admission and Anticipated Discharge Date Admission Date: January 05, 2020 Jeffery Chairez was seen and examined at bedside this morning. Overall she is doing fairly well. She has been ambulating to the bathroom and has already been into the hallway. Her pain is controlled and she has no complaints. Physical Exam Musculoskeletal: On physical examination of the left hip, the Silverlon dressing is clean and dry. Her leg lengths are equal. She has active dorsiflexion and plantarflexion of her left ankle. Results & Data ([facility]) Vital Signs (Past 12 Hours) Vital Signs Temp Pulse Resp BP Pulse Ox 01/06/20 07:39 36.5 C 62 16 143/80 H 96 01/06/20 02:42 36.9 C 60 16 107/56 L 95 01/05/20 22:55 36.5 C 60 16 130/72 95 Laboratory Results H & H 12/13/19 01/06/20 Range/Units 12:10 05:37 Hgb 12.3 10.8 L (12.0-16.0) g/dL Hct 37.4 31.9 L (37-47) % Coagulation 12/13/19 Range/Units 12:10 INR 1.0 (0.9-1.1) Diagnostic Findings Postoperative x-rays of the left hip show the prosthesis to be in anatomic alignment without any evidence of fracture, dislocation, or loosening. PG Care Time/CCT Total # of Minutes Spent Total Time Spent with Patient: Total time spent is greater than 50% in coordination of care (as documented) at patient's floor/unit and/or counseling patient: Coding Level of Care Code None Diagnoses Status post left hip replacement Z96.642
[2020-01-06] MEDS ORDERED: dexAMETHasone 4 MG TAB PO SCH (08:00)
[2020-01-06] MEDS: PANTOprazole 40 MG TAB PO SCH ×2 (08:44→20:06)
[2020-01-06] MEDS: PRIMIDONE 50 MG TAB PO SCH ×3 (08:44→20:07)
[2020-01-06] MEDS: MULTIVITAMIN TAB PO SCH (08:45)
[2020-01-06] MEDS: ASPIRIN 81 MG ECTAB PO SCH ×2 (08:45→20:07)
[2020-01-06] MEDS: ATORVASTATIN 10 MG TAB PO SCH (08:45)
[2020-01-06] MEDS: METOPROLOL TARTRATE 50 MG TAB PO SCH ×2 (08:45→17:27)
[2020-01-06] MEDS: FESOTERODINE FUMARATE 4 MG PO SCH (08:45)
[2020-01-06] MEDS: DOCUSATE SODIUM 100 MG CAP PO SCH ×2 (08:45→20:06)
[2020-01-06] MEDS: OXYCODONE HCL IR 5 MG TAB (IMMEDIATE RELEASE) PO PRN (08:52)
[2020-01-06] MEDS ORDERED: CALCIUM CARBONATE 500 MG CHEWABLE TAB PO PRN (13:41)
[2020-01-06] MEDS: ALUMINUM/MAGNESIUM SUSP 30 ML UDC PO PRN ×2 (14:29→20:21)
[2020-01-06] MEDS: DULOXETINE HCL 30 MG CAP PO SCH (20:06)
[2020-01-06] MEDS: SENNA 8.6 MG TAB PO SCH (20:07)
[2020-01-06] MEDS: TELMISARTAN 40 MG TAB PO SCH (20:08)
[2020-01-07] MEDS: KETOROLAC TROMETHAMINE 15 MG/ML VIAL IV SCH ×2 (02:45→07:51)
[2020-01-07] MEDS: ACETAMINOPHEN 500 MG TAB PO SCH (06:14)
[2020-01-07] MEDS: LEVOTHYROXINE SODIUM 150 MCG TABLET PO SCH (06:14)
[2020-01-07] MEDS: METOPROLOL TARTRATE 50 MG TAB PO SCH (07:45)
[2020-01-07] MEDS: MULTIVITAMIN TAB PO SCH (07:45)
[2020-01-07] MEDS: PRIMIDONE 50 MG TAB PO SCH (07:45)
[2020-01-07] MEDS: PANTOprazole 40 MG TAB PO SCH (07:45)
[2020-01-07] MEDS: DOCUSATE SODIUM 100 MG CAP PO SCH (07:45)
[2020-01-07] MEDS: ATORVASTATIN 10 MG TAB PO SCH (07:46)
[2020-01-07] MEDS: ASPIRIN 81 MG ECTAB PO SCH (07:46)
[2020-01-07] MEDS: FESOTERODINE FUMARATE 4 MG PO SCH (07:47)
--- NOTE | 2020-01-07 07:58 | Orthopedic Progress Note ---
Date of Service January 07, 2020 Assessment & Plan (1) Status post left hip replacement: Overall she is doing very well. She is not having much pain in the left hip. She will be seen by physical therapy this morning for ambulation and range of motion exercises. She is on aspirin for DVT prophylaxis. She can be discharged home later today. She will follow-up with orthopedics in 2 weeks. Present on Admission?: Yes Admission and Anticipated Discharge Date Admission Date: January 05, 2020 Jeffery Chairez was seen and examined at bedside this morning. Overall she is doing very well. She was ambulating well yesterday with physical therapy. She is having a little bit more soreness in her hip today but is not too bad. She has no new complaints. Physical Exam Musculoskeletal: On physical examination of the left left hip, the Silverlon dressing is clean and dry. Her leg lengths are equal. She has active dorsiflexion and plantarflexion of her left ankle. Results & Data ([facility]) Vital Signs (Past 12 Hours) Vital Signs Temp Pulse Resp BP Pulse Ox 01/07/20 06:22 36.8 C 61 18 161/80 H 94 01/06/20 23:00 36.9 C 66 16 139/72 96 PG Care Time/CCT Total # of Minutes Spent Total Time Spent with Patient: Total time spent is greater than 50% in coordination of care (as documented) at patient's floor/unit and/or counseling patient: Coding Level of Care Code None Diagnoses Status post left hip replacement Z96.642
--- NOTE | 2020-01-07 07:59 | Discharge Summary ---
Date of Service January 07, 2020 Admission HPI Per Admitting Provider Mihaela is a pleasant 74-year-old female who is been dealing with chronic increasing left hip and groin pain. X-rays and clinical examination agent have been diagnostic for advanced osteoarthritis of the left hip. After failing conservative treatment, she has elected to proceed with a left total hip arthroplasty. Principal Diagnosis Left hip replacement Discharge Data Allergies Allergy/AdvReac Type Severity Reaction Status Date / Time alendronate sodium Allergy Unknown HIVES Verified 01/05/20 10:40 lisinopril Allergy Unknown HIVES Verified 01/05/20 10:40 olmesartan Allergy Unknown HIVES Verified 01/05/20 10:40 aspirin AdvReac Unknown HX STOMACH Verified 01/05/20 10:40 ULCER-TO AVOID Consultations 01/06/20 08:00 Consult Case Management - Discharge Planning Routine Procedures Performed Operation Date: 01/05/20 11:50 Actual Procedures p Left Anterior Total Hip Arthroplasty, Uncemented(Left) - Marv De Souza DO Ordered Studies 01/05/20 11:52 FL fluoroscopy <1hr Routine FL hip LT 1V Routine Hospital Course (1) Status post left hip replacement: On January 05, [address] [facility] and underwent a left hip replacement without complication. She had a spinal anesthetic. Postoperatively she was started on aspirin for DVT prophylaxis and transferred to the general orthopedic floors. Her hospital course was uneventful. On po stop day #1 her H&H was stable and her pain was well controlled. She was able to participate well with physical therapy doing ambulation and range of motion exercises. On postop day #2 she continued to do well. She was having a little bit more soreness in her hip but it was not too bad. She was able to participate well with physical therapy once again. She was then discharged home. She will follow-up with orthopedics in 2 weeks. Total Time Total Time Spent Total Time Spent (In Minutes): 20 Discharge Plan Discharge Items Patient Disposition: Home - Home Health Services Reason For Visit: Left Hip Degenerative Joint Disease Discharge Diagnosis: Left hip replacement Activity: As commented below Non-emergency contact: Surgeon Call non-emergency contact if: your wound has increased redness and your wound has increased drainage Follow-up/Referrals: Marv Herrera DO [Primary Care Provider] - Diet: Regular Addtl Attending Provider Instructions: Activity and Therapy Recommendations: * If you are using [facility] then therapy will be provided at your home until they feel you have accomplished all of your goals. * If you are using [facility] then Physical Therapy will be provided until they feel you are ready to start Outpatient Physical Therapy. * If you are not using home therapy then Outpatient Physical Therapy should start about 3-5 days from your day of surgery. Therapy will last about 6-10 weeks * You were shown a series of exercises in the hospital. Do these exercises three times each day including the exercises you were shown in physical therapy. * Get up and walk several times each day.~ For the first four weeks, try not to stand or walk for more than one hour at a time. If you do stand or walk for more than one hour, you will not hurt anything, but your leg will likely swell.~~ * As you feel comfortable, you may change from the walker or crutches to a cane and~then to independent walking. Medications: * Narcotic You will likely be sent home from the hospital with a prescription for the narcotic pain medication that worked best throughout your stay. * Aspirin Most patients will be required to take Aspirin 81mg twice a day for 6 weeks after surgery. This is obtained [id number] and a prescription is not necessary. * Other medications may be prescribed for specific circumstances. If you have any questions, please call the office at . * Resume previous home medications unless otherwise instructed TEDs/Elastic Stockings: The white elastic stockings help limit swelling and prevent blood clots from forming in your legs. The more you wear them, the more they work. Wear them for six weeks. Dressing Care: Leave the Silverlon dressing in place for 7 days. After 7 days you may remove the dressing. If the incision is not draining then you may leave the yasmin open to air. If there is a little bit of drainage or if the yasmin are getting stuck on your clothing then cover the incision with a dry dressing. The yasmin will be removed at your 2 week follow-up appointment. Showering: You may shower with the Silverlon dressing in place. Do not let the shower spray hit the dressing directly. Pat the Silverlon dressing dry. If the dressing becomes wet underneath, then simply remove the dressing. Keep the incision dry until you are 7 days out from the day of surgery. After 7 days you may remove the Silverlon dressing and shower with the yasmin exposed. Let soapy water run over the yasmin and pat them dry. Do not scrub or soak the incision. Things To Watch For: * Drainage from the incision site that occurs more than one week after your surgery. * Increased redness at the incision site. * Fever above 102 degrees Fahrenheit. * Unusual chest pain or shortness of breath. * Call [facility] at with any of the above problems Follow-Up Visit: Follow-up with Dr. De Souza's PA (Marv London) 2-3 weeks after your day of surgery. He will remove your yasmin and answer any questions. If you have any additional questions or concerns, Dr De Souza is usually in the office at the same time and will be available An appointment was probably scheduled when you signed-up for surgery in the office. If you have any questions call Office Instructions: More detailed instructions as well as Frequently Asked Questions were provided in a folder by our office when you signed-up for surgery. Please review these instructions when you get home. If you have any further questions or concerns, please feel free to call the office at [phone] Pending Studies at Discharge: No Stand-Alone Forms: My [facility], Smoking Cessation Medications and DC Order Prescriptions: New oxycodone 5 mg Tablet 5 mg PO Q4H PRN (Reason: pain) Qty: 30 RF: 0 pantoprazole 40 mg Tablet,Delayed Release (Dr/Ec) 40 mg PO BID Qty: 30 RF: 0 aspirin 81 mg Tablet,Delayed Release (Dr/Ec) 81 mg PO BID 42 Days Qty: 0 RF: 0 Continued Toviaz 4 mg tablet extended release 24 hr 4 mg PO QAM Qty: 90 RF: 3 (DME) CPAP Machine Misc See Rx Instructions .ROUTE .MEDSUPPLY Qty: 1 RF: 0 levothyroxine 150 mcg tablet 150 mcg PO QAM Qty: 90 RF: 1 celecoxib 100 mg capsule 100 mg PO BID Qty: 180 RF: 3 metoprolol tartrate 50 mg tablet 50 mg PO BIDM Qty: 180 RF: 3 cholecalciferol (vitamin D3) 2,000 unit capsule 2,000 units PO QPM RF: 0 Restasis 0.05 % dropperette 1 drops OPB Q12H RF: 0 omega-3 fatty acids [Fish Oil Concentrate] 1,000 mg capsule 3,000 mg PO QAM RF: 0 primidone 50 mg tablet 100 mg PO TID 30 Days Qty: 180 RF: 5 Calcium 600 + D(3) 600 mg calcium- 200 unit Capsule 1 cap PO QPM RF: 0 telmisartan 40 mg tablet 80 mg PO HS RF: 0 duloxetine 30 mg capsule,delayed release(DR/EC) 30 mg PO HS RF: 0 acetaminophen [Tylenol Extra Strength] 500 mg Tablet 1,000 mg PO DAILY PRN (Reason: Pain) RF: 0 atorvastatin 10 mg tablet 10 mg PO QAM RF: 0 Discharge Orders: Discharge Order (Routine); Ordered 01/07/20 Ordered By: Marv De Souza Admission Data Admit Date/Time: 01/05/20 13:04 Attending Provider: Marv De Souza Admit Provider: Marv De Souza Primary Care Provider: Marv Herrera Coding Level of Care Code D/C Day Management <30 mins Diagnoses Status post left hip replacement Z96.642
== END 2020-01-07 10:34 | disposition home health service (06) ==
LOC: ASU 10:15 → 3E 10:15